=== PATIENT | male | born 1935 | race Caucasian/White ===

== ENCOUNTER 2017-04-07 17:22 | Inpatient (IN) ==
[2017-04-07 19:32] LABS: Basophils % 0.1 % (0.0-0.8); Hematocrit 21.7 VOL% (42.0-52.0); Hemoglobin 7.3 GM/DL (14.0-18.0); Immature Granulocytes % 0.8 %; Immature Granulocytes Absolute 0.15 #; Lymphocytes # 0.5 10*3/uL (1.4-4.0); Lymphocytes % 2.8 % (21.2-54.2); Mean Corpuscular HGB Conc 33.6 GM/DL (32-36); Mean Corpuscular Hemoglobin 30 PG (27-34); Mean Corpuscular Volume 90.4 FL (87-102); Mean Platelet Volume 10.6 FL (9.6-12.0); Monocytes % 5.4 % (1.7-12.7); Neutrophils # 16.9 10*3/uL (1.4-7.4); Neutrophils % 90.9 % (38.7-73.9); Platelet Count 266 T/CUMM (130-400); White Blood Count 18.7 T/CUMM (4-12)
[2017-04-07 19:57] LABS: Albumin 2.7 G/DL (3.4-5.0); Bilirubin,Total 0.6 MG/DL (0.2-1.0); Calcium 9.3 MG/DL (8.5-10.1); Osmolality,Calculated 298.5 MOS/KG (273-304); Potassium 4.2 MMOL/L (3.5-5.1); Total Protein 6.5 G/DL (6.4-8.3)
[2017-04-07] MEDS ORDERED: SODIUM CHLORIDE 0.9% 1,000 ML IV STA (21:05)
[2017-04-07 21:45] LABS: Lymphocytes 4 % (20-55); Platelet Estimate Normal; Poikilocytosis 1+; Segmented Neutrophils 92 % (50-85); Tear Drop Cells Few; Total Cells Counted 100
[2017-04-07 21:54] LABS: Apearance,Urine CLEAR (Clear); Bilirubin,Urine Negative (Negative); Blood, Urine Moderate mg/dL (Negative); Glucose,Urine (UA) >=500 mg/dL (Negative); Ketones,Urine Negative (Negative); Mucus,Urine Occasional /LPF (Occasional); Nitrite,Urine Negative (Negative); Protein,Urine 100 MG/DL; RBC,Urine <1 /HPF (0-4); Urine Color Yellow (Yellow); Urine Specific Gravity 1.007 (1.001-1.035); Urine Urobilinogen < 2.0 EU/DL (0.2-1.0); WBC,Urine 1 /HPF (0-6)
[2017-04-07] MEDS ORDERED: ALBUTEROL 2.5 MG/3 ML NEB RESP TX PRN (23:24)
[2017-04-07] MEDS ORDERED: ALBUTEROL/IPRATROPIUM 3 ML NEB RESP TX STA (23:25)
[2017-04-07] MEDS ORDERED: ACETAMINOPHEN 500 MG TABLET PO ONE (23:30)
[2017-04-07] MEDS ORDERED: cefTRIAXone 1,000 MG VIAL ONE (23:33)
[2017-04-07] MEDS ORDERED: AZITHROMYCIN 500 MG VIAL IV ONE (23:33)
[2017-04-07] MEDS ORDERED: ACETAMINOPHEN 500 MG TABLET ONE (23:34)
[2017-04-07] MEDS: cefTRIAXone 1,000 MG in SYRINGE 1 EACH IV SCH (23:45)
[2017-04-07] MEDS: AZITHROMYCIN INJ 500 MG in SODIUM CHLORIDE 0.9% 250 ML IV SCH (23:50)
[2017-04-08] MEDS ORDERED: ACETAMINOPHEN 325 MG TABLET PO PRN (00:27)
[2017-04-08] MEDS ORDERED: DEXTROSE 50% 25 GM/50 ML VIAL IV PRN (00:27)
[2017-04-08] MEDS ORDERED: GLUCAGON 1 MG VIAL IM PRN (00:27)
[2017-04-08] MEDS: ALBUTEROL/IPRATROPIUM 3 ML NEB RESP TX SCH ×5 (04:25→19:15)
[2017-04-08 05:33] LABS: Albumin 2.3 G/DL (3.4-5.0); Bilirubin,Total 0.8 MG/DL (0.2-1.0); Calcium 9.4 MG/DL (8.5-10.1); Magnesium 1.6 MG/DL (1.8-2.4); Potassium 4.7 MMOL/L (3.5-5.1); Risk Ratio 3.58; Thyroid Stimulating Hormone 0.601 uIU/ml (0.358-3.74); Total Protein 5.3 G/DL (6.4-8.3); VLDL CHOLESTEROL 25.8 MG/DL
[2017-04-08] MEDS: INSULIN LISPRO 100 UNIT/ML SUBCUT SCH ×4 (08:18→20:25)
[2017-04-08] MEDS ORDERED: PANTOPRAZOLE 40 MG VIAL IV SCH (09:00)
[2017-04-08] MEDS ORDERED: SODIUM CHLORIDE 0.9% 1,000 ML IV PRN (09:07)
[2017-04-08] MEDS ORDERED: FUROSEMIDE 40 MG/4 ML VIAL IV ONE (09:08)
[2017-04-08] MEDS: PANTOPRAZOLE 40 MG TABLET PO SCH ×2 (10:57→20:25)
[2017-04-08] MEDS: ALLOPURINOL 300 MG TABLET PO SCH (11:00)
[2017-04-08] MEDS: FERROUS SULFATE 325 MG TABLET PO SCH (11:00)
[2017-04-08] MEDS: MULTIVITAMIN (CENTRUM) TABLET PO SCH (11:00)
[2017-04-08] MEDS: ASPIRIN EC 81 MG TABLET PO SCH (11:01)
[2017-04-08] MEDS: INSULIN NPH/REGULAR 70/30 100 UNIT/ML SUBCUT SCH ×2 (12:59→18:29)
[2017-04-08] MEDS: SODIUM BICARB INJ 100 MEQ in DEXTROSE 5% NACL 0.22% 1,000 ML IV SCH (15:54)
[2017-04-08] MEDS: AZITHROMYCIN INJ 500 MG in SODIUM CHLORIDE 0.9% 250 ML IV SCH (23:34)
[2017-04-08] MEDS: cefTRIAXone 1,000 MG in SYRINGE 1 EACH IV SCH (23:34)
[2017-04-09] MEDS: ALBUTEROL/IPRATROPIUM 3 ML NEB RESP TX SCH ×7 (03:29→23:50)
[2017-04-09 04:47] LABS: Basophils % 0.1 % (0.0-0.8); Eosinophils % 0.3 % (0.00-10.9); Hematocrit 23.8 VOL% (42.0-52.0); Hemoglobin 8.1 GM/DL (14.0-18.0); Immature Granulocytes % 1.1 %; Immature Granulocytes Absolute 0.16 #; Lymphocytes # 0.9 10*3/uL (1.4-4.0); Lymphocytes % 6.2 % (21.2-54.2); Mean Corpuscular Hemoglobin 30 PG (27-34); Mean Corpuscular Volume 87.8 FL (87-102); Mean Platelet Volume 10.8 FL (9.6-12.0); Monocytes # 0.8 10*3/uL (0.11-0.8); Monocytes % 5.5 % (1.7-12.7); Neutrophils % 86.8 % (38.7-73.9); Platelet Count 228 T/CUMM (130-400); Red Blood Count 2.71 MC/CUMM (3.8-5.5); Red Cell Distribution Width 14.8 % (9.3-17.3); White Blood Count 14.9 T/CUMM (4-12)
[2017-04-09 05:14] LABS: Calcium 9.8 MG/DL (8.5-10.1); Osmolality,Calculated 305.4 MOS/KG (273-304); Potassium 3.7 MMOL/L (3.5-5.1)
[2017-04-09] MEDS: INSULIN LISPRO 100 UNIT/ML SUBCUT SCH ×4 (08:33→21:00)
[2017-04-09] MEDS: INSULIN NPH/REGULAR 70/30 100 UNIT/ML SUBCUT SCH ×2 (08:34→20:57)
[2017-04-09] MEDS: ASPIRIN EC 81 MG TABLET PO SCH (08:44)
[2017-04-09] MEDS: FERROUS SULFATE 325 MG TABLET PO SCH (08:44)
[2017-04-09] MEDS: ALLOPURINOL 300 MG TABLET PO SCH (08:45)
[2017-04-09] MEDS: MULTIVITAMIN (CENTRUM) TABLET PO SCH (08:46)
[2017-04-09] MEDS: PANTOPRAZOLE 40 MG TABLET PO SCH ×2 (08:46→20:38)
[2017-04-09] MEDS ORDERED: EPOETIN ALFA 10,000 UNIT/1 ML VIAL SUBCUT ONE (09:41)
[2017-04-09] MEDS: ONDANSETRON 4 MG/2 ML VIAL IV PRN (11:07)
[2017-04-09] MEDS: cefTRIAXone 1,000 MG in SYRINGE 1 EACH IV SCH (23:37)
[2017-04-09] MEDS: AZITHROMYCIN INJ 500 MG in SODIUM CHLORIDE 0.9% 250 ML IV SCH (23:39)
[2017-04-10] MEDS: ONDANSETRON 4 MG/2 ML VIAL IV PRN ×2 (01:33→05:45)
[2017-04-10] MEDS: ALBUTEROL/IPRATROPIUM 3 ML NEB RESP TX SCH ×6 (03:20→23:34)
[2017-04-10 05:12] LABS: Basophils % 0.2 % (0.0-0.8); Eosinophils # 0.1 10*3/uL (0.0-0.87); Eosinophils % 0.5 % (0.00-10.9); Hematocrit 23.2 VOL% (42.0-52.0); Hemoglobin 7.6 GM/DL (14.0-18.0); Immature Granulocytes % 0.8 %; Lymphocytes # 0.8 10*3/uL (1.4-4.0); Lymphocytes % 5.9 % (21.2-54.2); Mean Corpuscular HGB Conc 32.8 GM/DL (32-36); Mean Corpuscular Hemoglobin 30 PG (27-34); Mean Platelet Volume 10.6 FL (9.6-12.0); Monocytes # 0.8 10*3/uL (0.11-0.8); Monocytes % 6.6 % (1.7-12.7); Neutrophils # 11.1 10*3/uL (1.4-7.4); Platelet Count 257 T/CUMM (130-400); Red Blood Count 2.55 MC/CUMM (3.8-5.5); Red Cell Distribution Width 14.9 % (9.3-17.3); White Blood Count 12.8 T/CUMM (4-12)
[2017-04-10] MEDS: PANTOPRAZOLE 40 MG TABLET PO SCH ×2 (09:07→21:20)
[2017-04-10] MEDS: MULTIVITAMIN (CENTRUM) TABLET PO SCH (09:09)
[2017-04-10] MEDS: ASPIRIN EC 81 MG TABLET PO SCH (09:09)
[2017-04-10] MEDS: ALLOPURINOL 300 MG TABLET PO SCH (09:09)
[2017-04-10] MEDS: INSULIN LISPRO 100 UNIT/ML SUBCUT SCH ×4 (09:10→21:21)
[2017-04-10] MEDS: FERROUS SULFATE 325 MG TABLET PO SCH (09:10)
[2017-04-10] MEDS: INSULIN NPH/REGULAR 70/30 100 UNIT/ML SUBCUT SCH ×2 (09:10→21:21)
[2017-04-10] MEDS: SODIUM BICARB INJ 100 MEQ in DEXTROSE 5% NACL 0.22% 1,000 ML IV SCH (11:05)
[2017-04-10] MEDS ORDERED: guaiFENesin 200 MG/10 ML UDCUP PO PRN (13:37)
[2017-04-10] MEDS ORDERED: SKIN HEALING OINT (AQUAPHOR) 50 GM TUBE TOP PRN (16:14)
[2017-04-10] MEDS: CARVEDILOL 3.125 MG TABLET PO SCH (16:52)
[2017-04-10] MEDS: cefTRIAXone 1,000 MG in SYRINGE 1 EACH IV SCH (21:21)
[2017-04-10] MEDS: AZITHROMYCIN INJ 500 MG in SODIUM CHLORIDE 0.9% 250 ML IV SCH (21:22)
[2017-04-11] MEDS: ALBUTEROL/IPRATROPIUM 3 ML NEB RESP TX SCH ×4 (03:43→19:56)
[2017-04-11 06:02] LABS: Basophils % 0.3 % (0.0-0.8); Eosinophils # 0.3 10*3/uL (0.0-0.87); Eosinophils % 2.6 % (0.00-10.9); Hematocrit 23.6 VOL% (42.0-52.0); Hemoglobin 7.8 GM/DL (14.0-18.0); Immature Granulocytes % 1.2 %; Immature Granulocytes Absolute 0.12 #; Lymphocytes % 9.2 % (21.2-54.2); Mean Corpuscular HGB Conc 33.1 GM/DL (32-36); Mean Corpuscular Hemoglobin 30 PG (27-34); Mean Corpuscular Volume 90.1 FL (87-102); Mean Platelet Volume 10.6 FL (9.6-12.0); Monocytes # 0.8 10*3/uL (0.11-0.8); Monocytes % 7.5 % (1.7-12.7); Neutrophils # 8.2 10*3/uL (1.4-7.4); Neutrophils % 79.2 % (38.7-73.9); Platelet Count 268 T/CUMM (130-400); Red Blood Count 2.62 MC/CUMM (3.8-5.5); Red Cell Distribution Width 14.9 % (9.3-17.3); White Blood Count 10.4 T/CUMM (4-12)
[2017-04-11 06:31] LABS: Calcium 9.9 MG/DL (8.5-10.1); Magnesium 2.1 MG/DL (1.8-2.4); Osmolality,Calculated 314.8 MOS/KG (273-304)
[2017-04-11] MEDS ORDERED: SODIUM CHLORIDE 0.9% 1,000 ML IV PRN (06:44)
[2017-04-11] MEDS: FERROUS SULFATE 325 MG TABLET PO SCH (09:04)
[2017-04-11] MEDS: CARVEDILOL 3.125 MG TABLET PO SCH ×2 (09:05→16:02)
[2017-04-11] MEDS: PANTOPRAZOLE 40 MG TABLET PO SCH ×2 (09:05→21:04)
[2017-04-11] MEDS: INSULIN LISPRO 100 UNIT/ML SUBCUT SCH ×4 (09:05→21:07)
[2017-04-11] MEDS: ALLOPURINOL 300 MG TABLET PO SCH (09:05)
[2017-04-11] MEDS: ASPIRIN EC 81 MG TABLET PO SCH (09:05)
[2017-04-11] MEDS: MULTIVITAMIN (CENTRUM) TABLET PO SCH (09:05)
[2017-04-11] MEDS: INSULIN NPH/REGULAR 70/30 100 UNIT/ML SUBCUT SCH ×2 (09:06→21:07)
[2017-04-11] MEDS: SODIUM BICARBONATE 650 MG TABLET PO SCH ×2 (16:02→21:04)
[2017-04-11] MEDS: SODIUM BICARB INJ 100 MEQ in DEXTROSE 5% NACL 0.22% 1,000 ML IV SCH (19:24)
[2017-04-11] MEDS ORDERED: AZITHROMYCIN 250 MG TABLET PO ONE (21:00)
[2017-04-11] MEDS: cefTRIAXone 1,000 MG in SYRINGE 1 EACH IV SCH (21:04)
[2017-04-12] MEDS: ALBUTEROL/IPRATROPIUM 3 ML NEB RESP TX SCH ×8 (00:08→23:04)
[2017-04-12 05:45] LABS: Basophils # 0.1 10*3/uL (0.0-0.2); Basophils % 0.4 % (0.0-0.8); Eosinophils # 0.4 10*3/uL (0.0-0.87); Eosinophils % 3.3 % (0.00-10.9); Hematocrit 31.2 VOL% (42.0-52.0); Hemoglobin 10.3 GM/DL (14.0-18.0); Immature Granulocytes % 1.6 %; Immature Granulocytes Absolute 0.18 #; Lymphocytes % 9.2 % (21.2-54.2); Mean Corpuscular Hemoglobin 30 PG (27-34); Mean Corpuscular Volume 91.8 FL (87-102); Mean Platelet Volume 10.6 FL (9.6-12.0); Monocytes # 0.9 10*3/uL (0.11-0.8); Monocytes % 7.9 % (1.7-12.7); Neutrophils # 8.8 10*3/uL (1.4-7.4); Neutrophils % 77.6 % (38.7-73.9); Platelet Count 319 T/CUMM (130-400); Red Cell Distribution Width 15.1 % (9.3-17.3); White Blood Count 11.3 T/CUMM (4-12)
[2017-04-12 06:24] LABS: Calcium 10.5 MG/DL (8.5-10.1); Magnesium 2.1 MG/DL (1.8-2.4); Osmolality,Calculated 311.8 MOS/KG (273-304); Potassium 4.1 MMOL/L (3.5-5.1)
[2017-04-12 06:25] LABS: Calcium 10.4 MG/DL (8.5-10.1); Potassium 4.1 MMOL/L (3.5-5.1)
[2017-04-12] MEDS ORDERED: PROPOFOL 200 MG/20 ML VIAL IV ONE (11:02)
[2017-04-12] MEDS ORDERED: LIDOCAINE 2% 5 ML VIAL ONE (11:02)
[2017-04-12] MEDS ORDERED: BISACODYL 5 MG TABLET PO ONE (12:00)
[2017-04-12] MEDS: INSULIN LISPRO 100 UNIT/ML SUBCUT SCH ×3 (13:07→20:42)
[2017-04-12] MEDS: FERROUS SULFATE 325 MG TABLET PO SCH (13:09)
[2017-04-12] MEDS: SODIUM BICARBONATE 650 MG TABLET PO SCH ×3 (13:09→20:41)
[2017-04-12] MEDS: ASPIRIN EC 81 MG TABLET PO SCH (13:09)
[2017-04-12] MEDS: PANTOPRAZOLE 40 MG TABLET PO SCH ×2 (13:09→20:41)
[2017-04-12] MEDS: CARVEDILOL 3.125 MG TABLET PO SCH ×2 (13:09→17:55)
[2017-04-12] MEDS: ALLOPURINOL 300 MG TABLET PO SCH (13:09)
[2017-04-12] MEDS: MULTIVITAMIN (CENTRUM) TABLET PO SCH (13:09)
[2017-04-12] MEDS: INSULIN NPH/REGULAR 70/30 100 UNIT/ML SUBCUT SCH ×2 (13:10→20:41)
[2017-04-12] MEDS ORDERED: POLYETHYLENE GLYCOL POWDER 255 GM BOTTLE PO ONE (18:00)
[2017-04-12] MEDS ORDERED: DEXTROSE 50% 25 GM/50 ML VIAL IV PRN (19:24)
[2017-04-12] MEDS ORDERED: GLUCAGON 1 MG VIAL IM PRN (19:24)
[2017-04-12] MEDS: cefTRIAXone 1,000 MG in SYRINGE 1 EACH IV SCH (20:49)
[2017-04-13] MEDS: ALBUTEROL/IPRATROPIUM 3 ML NEB RESP TX SCH ×5 (03:24→20:08)
[2017-04-13 06:25] LABS: Basophils % 0.4 % (0.0-0.8); Eosinophils # 0.3 10*3/uL (0.0-0.87); Eosinophils % 3.1 % (0.00-10.9); Hematocrit 30.8 VOL% (42.0-52.0); Hemoglobin 10.3 GM/DL (14.0-18.0); Immature Granulocytes % 1.3 %; Immature Granulocytes Absolute 0.13 #; Lymphocytes % 9.9 % (21.2-54.2); Mean Corpuscular HGB Conc 33.4 GM/DL (32-36); Mean Corpuscular Hemoglobin 30 PG (27-34); Mean Corpuscular Volume 90.1 FL (87-102); Mean Platelet Volume 10.3 FL (9.6-12.0); Monocytes # 0.8 10*3/uL (0.11-0.8); Monocytes % 7.6 % (1.7-12.7); Neutrophils # 7.7 10*3/uL (1.4-7.4); Neutrophils % 77.7 % (38.7-73.9); Platelet Count 335 T/CUMM (130-400); Red Blood Count 3.42 MC/CUMM (3.8-5.5); Red Cell Distribution Width 15.3 % (9.3-17.3); White Blood Count 9.9 T/CUMM (4-12)
[2017-04-13 06:46] LABS: Calcium 10.8 MG/DL (8.5-10.1); Osmolality,Calculated 312.7 MOS/KG (273-304); Potassium 4.1 MMOL/L (3.5-5.1)
[2017-04-13] MEDS: INSULIN NPH/REGULAR 70/30 100 UNIT/ML SUBCUT SCH ×2 (09:15→21:07)
[2017-04-13] MEDS: ALLOPURINOL 300 MG TABLET PO SCH (09:17)
[2017-04-13] MEDS: SODIUM BICARBONATE 650 MG TABLET PO SCH ×3 (09:17→21:01)
[2017-04-13] MEDS: PANTOPRAZOLE 40 MG TABLET PO SCH ×2 (09:17→21:00)
[2017-04-13] MEDS: ASPIRIN EC 81 MG TABLET PO SCH (09:17)
[2017-04-13] MEDS: CARVEDILOL 3.125 MG TABLET PO SCH ×2 (09:17→16:48)
[2017-04-13] MEDS: MULTIVITAMIN (CENTRUM) TABLET PO SCH (09:17)
[2017-04-13] MEDS: FERROUS SULFATE 325 MG TABLET PO SCH (09:17)
[2017-04-13] MEDS: INSULIN LISPRO 100 UNIT/ML SUBCUT SCH ×4 (12:04→21:08)
[2017-04-13] MEDS: cefTRIAXone 1,000 MG in SYRINGE 1 EACH IV SCH (21:12)
[2017-04-14] MEDS: ALBUTEROL/IPRATROPIUM 3 ML NEB RESP TX SCH ×4 (00:36→10:38)
[2017-04-14 07:23] LABS: Calcium 11.1 MG/DL (8.5-10.1); Osmolality,Calculated 308.6 MOS/KG (273-304); Potassium 3.9 MMOL/L (3.5-5.1)
[2017-04-14 07:58] VITALS: BP 143/59
[2017-04-14] MEDS: MULTIVITAMIN (CENTRUM) TABLET PO SCH (08:53)
[2017-04-14] MEDS: SODIUM BICARBONATE 650 MG TABLET PO SCH (08:53)
[2017-04-14] MEDS: ASPIRIN EC 81 MG TABLET PO SCH (08:53)
[2017-04-14] MEDS: ALLOPURINOL 300 MG TABLET PO SCH (08:53)
[2017-04-14] MEDS: FERROUS SULFATE 325 MG TABLET PO SCH (08:53)
[2017-04-14] MEDS: PANTOPRAZOLE 40 MG TABLET PO SCH (08:53)
[2017-04-14] MEDS: CARVEDILOL 3.125 MG TABLET PO SCH (08:54)
[2017-04-14] MEDS: INSULIN LISPRO 100 UNIT/ML SUBCUT SCH (08:54)
[2017-04-14] MEDS: INSULIN NPH/REGULAR 70/30 100 UNIT/ML SUBCUT SCH (08:54)
[2017-04-14] MEDS: cefTRIAXone 1,000 MG in SYRINGE 1 EACH IV SCH (11:24)
[2017-04-14] MEDS: SODIUM BICARB INJ 100 MEQ in DEXTROSE 5% NACL 0.22% 1,000 ML IV SCH (12:35)
== END 2017-04-14 12:43 | disposition home health service (06) | DRG 871 ==
LOC: N.ED 17:22 → SUATTDRO 23:51 → N.EDINP 23:51 → N.ICU 04-08 00:24 → N.2E 04-09 15:11
PROVIDERS: ADMIT Internal Medicine Nephrology; ATTEND Hospitalist